=== PATIENT | female | born 1950 | race Caucasian/White ===

== ENCOUNTER 2017-09-03 19:30 | Outpatient (CLI) | payer MEDICARE | END 2017-09-03 19:31 | disposition home or self-care (01) | LOC: SLEEPLAB 19:30 | PROVIDERS: ATTEND Family Medicine | DX: G47.33 Obstructive sleep apnea (adult) (pediatric) (principal); R53.83 Other fatigue; E11.9 Type 2 diabetes mellitus without complications; I10 Essential (primary) hypertension; F32.9 Major depressive disorder, single episode, unspecified | CPT/HCPCS: 95811 ==

== ENCOUNTER 2018-07-02 10:52 | Outpatient (CLI) | payer MEDICARE | END 2018-07-02 10:53 | disposition home or self-care (01) | LOC: BICMAMMO 10:52 | PROVIDERS: ATTEND Obstetrics & Gynecology | DX: Z12.31 Encounter for screening mammogram for malignant neoplasm of breast (principal) | CPT/HCPCS: 77063; 77067 ==

== ENCOUNTER 2019-07-22 13:45 | Outpatient (CLI) | payer MEDICARE ==
--- NOTE | 2019-07-22 14:45 | MMO ---
Bilateral MAMMO Bilat Screen [facility]. CLINICAL HISTORY: Patient is 69 years old and is seen for screening. The patient has no family history of breast cancer. The patient has no personal history of cancer. VIEWS: The views performed were: bilateral craniocaudal with tomosynthesis and bilateral mediolateral oblique with tomosynthesis. FILMS COMPARED: The present examination has been compared to a prior imaging study performed at [facility] on 07/02/2018. This study has been interpreted with the assistance of computer-aided detection. MAMMOGRAM FINDINGS: There are scattered fibroglandular densities. There are stable benign appearing calcifications seen in both breasts. There are no suspicious masses, suspicious calcifications, or new areas of architectural distortion. IMPRESSION: THERE IS NO MAMMOGRAPHIC EVIDENCE OF MALIGNANCY. A ROUTINE FOLLOW-UP MAMMOGRAM IN 1 YEAR IS RECOMMENDED. THE RESULTS OF THIS EXAM WERE SENT TO THE PATIENT. ACR BI-RADS Category 2 - Benign finding MAMMOGRAPHY NOTE: 1. A negative mammogram report should not delay a biopsy if a dominant of clinically suspicious mass is present. 2. Approximately 10% to 15% of breast cancers are not detected by mammography. 3. Adenosis and dense breasts may obscure an underlying neoplasm. Reported by: CICI JENKINS MD Electonically Signed: [id number]
== END 2019-07-22 13:46 | disposition home or self-care (01) ==
LOC: BICMAMMO 13:45
PROVIDERS: ATTEND Family Medicine
DX: Z12.31 Encounter for screening mammogram for malignant neoplasm of breast (principal)
CPT/HCPCS: 77063; 77067

== ENCOUNTER 2020-07-31 10:16 | Outpatient (CLI) | payer MEDICARE ==
--- NOTE | 2020-07-31 13:44 | MMO ---
Bilateral MAMMO Bilat Screen [facility]. CLINICAL HISTORY: Patient is 70 years old and is seen for screening. The patient has no family history of breast cancer. The patient has no personal history of cancer. VIEWS: The views performed were: bilateral craniocaudal with tomosynthesis and bilateral mediolateral oblique with tomosynthesis. FILMS COMPARED: The present examination has been compared to prior imaging studies performed at [facility] on 07/02/2018 and 07/22/2019. This study has been interpreted with the assistance of computer-aided detection. MAMMOGRAM FINDINGS: There are scattered fibroglandular densities. Benign calcifications are noted bilaterally. There are no suspicious masses, suspicious calcifications, or new areas of architectural distortion. IMPRESSION: THERE IS NO MAMMOGRAPHIC EVIDENCE OF MALIGNANCY. A ROUTINE FOLLOW-UP MAMMOGRAM IN 1 YEAR IS RECOMMENDED. THE RESULTS OF THIS EXAM WERE SENT TO THE PATIENT. ACR BI-RADS Category 2 - Benign finding MAMMOGRAPHY NOTE: 1. A negative mammogram report should not delay a biopsy if a dominant of clinically suspicious mass is present. 2. Approximately 10% to 15% of breast cancers are not detected by mammography. 3. Adenosis and dense breasts may obscure an underlying neoplasm. Reported by: CAROLYNE GR MD Electonically Signed: [id number]
== END 2020-07-31 10:17 | disposition home or self-care (01) ==
LOC: BICMAMMO 10:16
PROVIDERS: ATTEND Family Medicine
DX: Z12.31 Encounter for screening mammogram for malignant neoplasm of breast (principal)
CPT/HCPCS: 77063; 77067

== ENCOUNTER 2021-08-01 10:29 | Outpatient (CLI) | payer MEDICARE | END 2021-08-01 10:30 | disposition home or self-care (01) | LOC: BICMAMMO 10:29 | PROVIDERS: ATTEND Family Medicine | DX: Z12.31 Encounter for screening mammogram for malignant neoplasm of breast (principal); R92.1 Mammographic calcification found on diagnostic imaging of breast; N64.89 Other specified disorders of breast | CPT/HCPCS: 77063; 77067 ==

== ENCOUNTER 2021-08-07 13:37 | Outpatient (CLI) | payer MEDICARE | END 2021-08-07 13:38 | disposition home or self-care (01) | LOC: BICULT 13:37 | PROVIDERS: ATTEND Family Medicine | DX: R92.2 Inconclusive mammogram (principal) ==

== ENCOUNTER 2022-02-04 10:28 | Outpatient (CLI) | payer MEDICARE | END 2022-02-04 10:29 | disposition home or self-care (01) | LOC: BICMAMMO 10:28 | PROVIDERS: ATTEND Family Medicine | DX: R92.8 Other abnormal and inconclusive findings on diagnostic imaging of breast (principal) | CPT/HCPCS: 76642; 77065; G0279 ==

== ENCOUNTER → 2022-02-20 | Day surgery (SDC) | payer MEDICARE | END | disposition home or self-care (01) | LOC: MAMMO 06:53 | PROVIDERS: ATTEND Family Medicine | PROC: 0H9T3ZX Drainage of Right Breast, Percutaneous Approach, Diagnostic (ICD-10-PCS; principal; 2022-02-20) | DX: D24.1 Benign neoplasm of right breast (principal); Z88.5 Allergy status to narcotic agent | CPT/HCPCS: 19081; 88305; 88341; 88342 ==

== ENCOUNTER 2022-03-08 12:19 | Outpatient (CLI) | payer MEDICARE ==
[2022-03-08 13:47] LABS: #Basophils 0.1 10x3/uL (0.0-0.2); #Eosinphils 0.5 10x3/uL (0.0-0.5); #Monocytes 0.6 10x3/uL (0.0-1.1); #Neutrophils 3.5 10x3/uL (1.5-8.4); %Basophils 0.8 % (0.0-2.0); %Eosinophils 6.4 % (0.0-6.0); %Lymphocytes 37.1 % (18.0-47.0); %Monocytes 7.7 % (0.0-10.0); %Neutrophils 47.7 % (40.0-75.0); Hemoglobin 13.3 g/dL (12.0-15.5); Mean Corpuscular HGB CONC 32.5 g/dL (32.0-36.0); Mean Corpuscular Hemoglobin 30.5 pg (27.0-33.0); Mean Corpuscular Volume 93.8 fl (81.6-98.3); Mean Platelet Volume 10.4 fl (7.4-10.4); Platelet Count 299 10x3/uL (150-450); RBC Distribution Width 12.4 % (11.5-14.5); Red Blood Cell (RBC) Count 4.36 10x6/uL (3.90-5.03); White Blood Cell (WBC) Count 7.3 10x3/uL (3.5-10.5)
[2022-03-08 14:01] LABS: Anion Gap 16 mmol/L (10-20); BUN (Urea Nitrogen) 16 mg/dL (9.8-20.1); Calc. Creatinine Clearance 0 mL/min (70-130); Calcium 9.6 mg/dL (7.8-10.44); Carbon Dioxide 25 mmol/L (23-31); Chloride 101 mmol/L (98-107); Glucose 178 mg/dL (83-110); Potassium 4.5 mmol/L (3.5-5.1); Sodium 137 mmol/L (136-145)
== END 2022-03-08 12:20 | disposition home or self-care (01) ==
LOC: LABBT 12:19
PROVIDERS: ATTEND Surgery
DX: Z01.818 Encounter for other preprocedural examination (principal); N63.10 Unspecified lump in the right breast, unspecified quadrant; Z20.822 Contact with and (suspected) exposure to COVID-19
CPT/HCPCS: 71046; 80048; 85025; 93005; U0003; U0005; 93010

== ENCOUNTER 2022-03-13 06:54 | Day surgery (SDC) | payer MEDICARE ==
[2022-03-12 12:07] VITALS: BMI 32.9
[2022-03-13] MEDS ORDERED: Acetaminophen 500 MG TAB ONE (08:38)
[2022-03-13] MEDS ORDERED: Bupivacaine 0.25% HCL 30 ML VIAL ONE (11:59)
[2022-03-13] MEDS ORDERED: EPINEPHrine 1 MG/ML AMP ONE (11:59)
[2022-03-13] MEDS ORDERED: fentaNYL Citrate/PF 100 MCG/2 ML SYRINGE ONE (12:04)
[2022-03-13] MEDS ORDERED: CEFAZOLIN 2 GM VIAL ONE (12:11)
[2022-03-13] MEDS ORDERED: Sodium Chloride 0.9% 100 ML ONE (12:11)
[2022-03-13] MEDS ORDERED: PROPOFOL 200 MG/20 ML VIAL ONE (12:16)
[2022-03-13] MEDS ORDERED: Dexamethasone 20 MG/5 ML VIAL ONE (12:16)
[2022-03-13] MEDS ORDERED: Lidocaine 1% PF 5 ML VIAL ONE (12:16)
[2022-03-13] MEDS ORDERED: Ondansetron PF 4 MG/2 ML Vial ONE (12:16)
== END 2022-03-13 15:07 | disposition home or self-care (01) ==
LOC: SDC 06:54
PROVIDERS: ATTEND Surgery
PROC: 0HBT0ZZ Excision of Right Breast, Open Approach (ICD-10-PCS; principal; 2022-03-13)
DX: C50.811 Malignant neoplasm of overlapping sites of right female breast (principal); I10 Essential (primary) hypertension; Z17.0 Estrogen receptor positive status [ER+]; Z79.82 Long term (current) use of aspirin; Z79.84 Long term (current) use of oral hypoglycemic drugs; Z79.890 Hormone replacement therapy; Z88.5 Allergy status to narcotic agent; Z90.49 Acquired absence of other specified parts of digestive tract
CPT/HCPCS: 19125; 19281; 76098; C1776; 88307; 88341; 88342; J0171; J0690; J1100; J2405; J2704; J3490; S0020

== ENCOUNTER 2022-03-25 07:14 | Outpatient (CLI) | payer MEDICARE | END 2022-03-25 07:15 | disposition home or self-care (01) | LOC: LABBT 07:14 | PROVIDERS: ATTEND Surgery | DX: Z20.822 Contact with and (suspected) exposure to COVID-19 (principal) | CPT/HCPCS: U0003; U0005 ==

== ENCOUNTER 2022-03-26 08:41 | Day surgery (SDC) | payer MEDICARE ==
[2022-03-25 10:24] VITALS: BMI 32.9
[2022-03-26] MEDS ORDERED: Isosulfan Blue 50 MG/5 ML VIAL ONE (11:34)
[2022-03-26] MEDS ORDERED: Lidocaine 1% w/Epinephrine 1:100K 20 ML VIAL ONE (11:34)
[2022-03-26] MEDS ORDERED: Bupivacaine 0.25% HCL 30 ML VIAL ONE (11:34)
[2022-03-26] MEDS ORDERED: fentaNYL Citrate/PF 100 MCG/2 ML SYRINGE ONE (11:35)
[2022-03-26] MEDS ORDERED: HYDROmorphone 2 MG/ML VIAL ONE (11:42)
[2022-03-26] MEDS ORDERED: Acetaminophen 500 MG TAB ONE (12:33)
[2022-03-26] MEDS ORDERED: Sodium Chloride 0.9% 100 ML ONE (12:44)
[2022-03-26] MEDS ORDERED: CEFAZOLIN 2 GM VIAL ONE (12:44)
[2022-03-26] MEDS ORDERED: Midazolam HCl 2 mg/2 ml Vial ONE (12:52)
== END 2022-03-26 17:10 | disposition home or self-care (01) ==
LOC: SDC 08:41
PROVIDERS: ATTEND Surgery
PROC: 07B50ZX Excision of Right Axillary Lymphatic, Open Approach, Diagnostic (ICD-10-PCS; principal; 2022-03-26)
DX: C50.911 Malignant neoplasm of unspecified site of right female breast (principal); I10 Essential (primary) hypertension; Z79.82 Long term (current) use of aspirin; Z79.84 Long term (current) use of oral hypoglycemic drugs; Z79.890 Hormone replacement therapy; Z79.899 Other long term (current) drug therapy; Z88.5 Allergy status to narcotic agent; Z90.49 Acquired absence of other specified parts of digestive tract
CPT/HCPCS: 38525; 38900; 78195; A9541; C1776; Q9968; 88305; 88307; 88342; J0690; J1170; J2250; J3490; S0020

== ENCOUNTER 2022-10-09 18:00 | Outpatient (CLI) | payer MEDICARE | END 2022-10-09 18:01 | disposition home or self-care (01) | LOC: SLEEPLAB 18:00 | PROVIDERS: ATTEND Internal Medicine | DX: G47.33 Obstructive sleep apnea (adult) (pediatric) (principal); R06.83 Snoring; I10 Essential (primary) hypertension; F32.9 Major depressive disorder, single episode, unspecified; E66.9 Obesity, unspecified; Z68.33 Body mass index [BMI] 33.0-33.9, adult | CPT/HCPCS: 95800 ==

== ENCOUNTER 2023-02-05 13:25 | Outpatient (CLI) | payer MEDICARE | END 2023-02-05 13:26 | disposition home or self-care (01) | LOC: BICMAMMO 13:25 | PROVIDERS: ATTEND Radiology Radiation Oncology | DX: C50.819 Malignant neoplasm of overlapping sites of unspecified female breast (principal) | CPT/HCPCS: 77066; G0279 ==

== ENCOUNTER 2023-06-03 10:42 | Outpatient (CLI) | payer MEDICARE | END 2023-06-03 10:43 | disposition home or self-care (01) | LOC: BICMAMMO 10:42 | PROVIDERS: ATTEND Internal Medicine Hematology & Oncology | DX: Z13.820 Encounter for screening for osteoporosis (principal); C50.511 Malignant neoplasm of lower-outer quadrant of right female breast; T38.6X5A Adverse effect of antigonadotrophins, antiestrogens, antiandrogens, not elsewhere classified, initial encounter; M85.851 Other specified disorders of bone density and structure, right thigh; M85.852 Other specified disorders of bone density and structure, left thigh | CPT/HCPCS: 77080 ==

== ENCOUNTER 2023-07-07 16:00 | Outpatient (CLI) | payer MEDICARE | END 2023-07-07 16:01 | disposition home or self-care (01) | LOC: SLEEPLAB 16:00 | PROVIDERS: ATTEND Internal Medicine | DX: G47.33 Obstructive sleep apnea (adult) (pediatric) (principal); F32.A Depression, unspecified; E11.9 Type 2 diabetes mellitus without complications; I10 Essential (primary) hypertension; N20.0 Calculus of kidney; K57.92 Diverticulitis of intestine, part unspecified, without perforation or abscess without bleeding; G47.61 Periodic limb movement disorder | CPT/HCPCS: 95811 ==

== ENCOUNTER 2024-02-10 13:07 | Outpatient (CLI) | payer MEDICARE | END 2024-02-10 13:08 | disposition home or self-care (01) | LOC: BICMAMMO 13:07 | PROVIDERS: ATTEND Specialist | DX: Z08 Encounter for follow-up examination after completed treatment for malignant neoplasm (principal); Z85.3 Personal history of malignant neoplasm of breast | CPT/HCPCS: 77066; G0279 ==

== ENCOUNTER 2024-10-29 12:49 | Outpatient (CLI) | payer MEDICARE | END 2024-10-29 12:50 | disposition home or self-care (01) | LOC: BICMAMMO 12:49 | PROVIDERS: ATTEND Internal Medicine Hematology & Oncology | DX: M85.80 Other specified disorders of bone density and structure, unspecified site (principal); C50.511 Malignant neoplasm of lower-outer quadrant of right female breast; Z78.0 Asymptomatic menopausal state | CPT/HCPCS: 77080 ==

== ENCOUNTER 2024-12-09 14:58 | Outpatient (CLI) | payer MEDICARE, OTHER | END 2024-12-09 14:59 | disposition home or self-care (01) | LOC: BICMRI 14:58 | PROVIDERS: ATTEND Family Medicine | DX: M47.812 Spondylosis without myelopathy or radiculopathy, cervical region (principal); M50.31 Other cervical disc degeneration, high cervical region; M50.21 Other cervical disc displacement, high cervical region; M50.321 Other cervical disc degeneration at C4-C5 level; M50.322 Other cervical disc degeneration at C5-C6 level; M50.323 Other cervical disc degeneration at C6-C7 level; M50.33 Other cervical disc degeneration, cervicothoracic region; M43.12 Spondylolisthesis, cervical region; M48.02 Spinal stenosis, cervical region; M48.03 Spinal stenosis, cervicothoracic region; M25.78 Osteophyte, vertebrae; R60.0 Localized edema | CPT/HCPCS: 72141 ==